=== PATIENT | female | born 1975 | race American Indian/Alaskan Native ===

== ENCOUNTER 2016-04-23 17:22 | Emergency (ER) | payer BC ==
--- NOTE | 2016-04-23 18:33 | Emergency Department Report ---
Chief Complaint: Recheck/Abnormal Lab/Rx Stated Complaint: SOB/IRON LOW Time Seen by Provider: 04/23/16 18:33 - HPI History of Present Illness: Patient here states that she was diagnosed with Count 1-2 months ago. She says she is not taking a chronic basis I). She is complaining of feeling fatigued and tired all the time. Complaining of shortness of breath and chest tightness on and off to the middle of her chest since Wednesday. She says she feels a little bit better today. Denies any nausea vomiting. Denies any fever or chills. Her pain level now is 0 out of 10. Last menstrual period was 04/02/2016. - ROS Review of Systems: All systems are negative unless stated in HPI above. - Exam Vital Signs: Vital Signs 04/23/16 17:25 Temperature 98.3 F Pulse Rate 68 Respiratory 16 Rate Blood Pressure 149/84 O2 Sat by Pulse 100 Oximetry Physical Exam: General: This is a 41-year-old female well-nourished well-developed in no acute distress. CV: S1, S2. Regular rhythm and rate. Lungs:CTAB. Normal work of breathing MSE screening note: Focused history and physical exam performed. Due to findings the following was ordered:see mdm ED Medical Decision Making - Medical Decision Making Medical decision making: Patient seen by provider in triage area. Appropriate protocol activated and patient to main ED to be seen by physician. ED Disposition for MSE Condition: Stable
[2016-04-23 19:37] LABS: Basophils % (Auto) 0.4 % (0.0-1.8); Eosinophils % (Auto) 0.9 % (0.0-4.3); Hemoglobin 11.9 gm/dl (10.1-14.3); White Blood Count 7.1 K/mm3 (4.5-11.0)
[2016-04-23 19:41] LABS: Mean Corpuscular HGB Conc 32 % (30-34); Mean Corpuscular Hemoglobin 27 pg (28-32); Mean Corpuscular Volume 84 fl (79-97); Platelet Count 350 K/mm3 (140-440); Red Blood Count 4.38 M/mm3 (3.65-5.03); Red Cell Distribution Width 16.9 % (13.2-15.2)
[2016-04-23 20:01] LABS: Anion Gap 19 mmol/L; BUN/Creatinine Ratio 13.75; Blood Urea Nitrogen 11 mg/dL (7-17); Calcium 9.2 mg/dL (8.4-10.2); Carbon Dioxide 23 mmol/L (22-30); Chloride 101.1 mmol/L (98-107); Glucose 93 mg/dL (65-100); Potassium 3.5 mmol/L (3.6-5.0); Sodium 140 mmol/L (137-145)
[2016-04-23 20:05] LABS: Total Iron Binding Capacity 484.4 mcg/dL (250-450)
--- NOTE | 2016-04-24 00:09 | Emergency Department Report ---
ED General Adult HPI - General Chief complaint: Recheck/Abnormal Lab/Rx Stated complaint: SOB/IRON LOW Time Seen by Provider: 04/23/16 18:46 Source: patient, RN notes reviewed Mode of arrival: Ambulatory Limitations: No Limitations - History of Present Illness Initial comments: This is a 41-year-old female, previously unknown to me. Her primary care doctor is Dr. Hans Branham. Thinks she has a past medical history of anemia, but is not certain. Patient presents to the ER with nonspecific malaise, chest fluttering, shortness of breath. Chest fluttering and shortness of breath have been present since Wednesday. The chest fluttering does not radiates to the back, arms or neck. It is not associated with vomiting, diaphoresis. There is no leg pain or leg swelling. Patient reports a recent trip to [place] right after [place]. Does not use tobacco, cocaine. There is no family history of heart disease that she is aware of, there is no family history of thromboembolic disease that she is aware of. The patient describes her shortness of breath as the intermittent sensation of needing to take a deep breath. However, she does not think that she has a decrease in exercise tolerance per se. She cannot describe exacerbating or relieving factors. -: Gradual, days(s) Location: chest Severity scale (0 -10): 6 Quality: other (fluttering) Consistency: intermittent Improves with: none Worsens with: none Associated Symptoms: chest pain, malaise, shortness of breath, weakness. denies : confusion, cough, fever/chills, headaches, loss of appetite - Related Data Home Medications Medication Instructions Recorded Confirmed Last Taken No Known Home Medications [No 04/24/16 04/24/16 Unknown Reported Home Medications] Allergies Allergy/AdvReac Type Severity Reaction Status Date / Time No Known Allergies Allergy Unverified 04/23/16 17:31 ED Review of Systems ROS: Stated complaint: SOB/IRON LOW Other details as noted in HPI Constitutional: malaise. denies: fever Eyes: denies: vision change ENT: denies: epistaxis Respiratory: see HPI, cough Cardiovascular: chest pain Gastrointestinal: denies: abdominal pain Genitourinary: denies: dysuria Musculoskeletal: as per HPI Skin: denies: lesions Neurological: denies: headache Psychiatric: anxiety ED Past Medical Hx - Past Medical History Additional medical history: LOW IRON - Surgical History Additional Surgical History: TONSILLECTOMY. TUBAL LIGATION. - Social History Smoking Status: Never Smoker Substance Use Type: None - Medications Home Medications: Home Medications Medication Instructions Recorded Confirmed Last Taken Type No Known Home Medications [No 04/24/16 04/24/16 Unknown History Reported Home Medications] ED Physical Exam - General Limitations: No Limitations General appearance: alert, in no apparent distress - Head Head exam: Present: atraumatic, normocephalic - Eye Eye exam: Present: normal appearance, PERRL, EOMI. Absent: nystagmus - ENT ENT exam: Present: normal exam, normal orophraynx, mucous membranes moist, normal external ear exam - Neck Neck exam: Present: normal inspection, full ROM. Absent: tenderness, meningismus - Respiratory Respiratory exam: Present: normal lung sounds bilaterally. Absent: respiratory distress, wheezes, rales, rhonchi, stridor, chest wall tenderness - Cardiovascular Cardiovascular Exam: Present: regular rate, normal rhythm, normal heart sounds. Absent: bradycardia, tachycardia, irregular rhythm, systolic murmur, diastolic murmur, rubs, gallop - GI/Abdominal GI/Abdominal exam: Present: soft, normal bowel sounds. Absent: distended, tenderness, guarding, rebound, rigid, pulsatile mass - Extremities Exam Extremities exam: Present: normal inspection, full ROM, normal capillary refill. Absent: tenderness, pedal edema, joint swelling, calf tenderness - Back Exam Back exam: Present: normal inspection, full ROM. Absent: tenderness, CVA tenderness (R), muscle spasm, paraspinal tenderness, vertebral tenderness - Neurological Exam Neurological exam: Present: alert, oriented X3, normal gait, other (Extraocular movements intact. Tongue midline. No facial droop. Facial sensation intact to light touch in the V1, V2, V3 distribution bilaterally. 5 and 5 strength in 4 extremities.. Sensation is intact to light touch in 4 extremities.). Absent : motor sensory deficit - Psychiatric Psychiatric exam: Present: anxious - Skin Skin exam: Present: warm, dry, intact, normal color. Absent: rash ED Course Vital Signs 04/23/16 04/23/16 04/23/16 17:25 23:38 23:56 Temperature 98.3 F 98.0 F Pulse Rate 68 62 Respiratory 16 20 Rate Blood Pressure 149/84 106/64 Blood Pressure 119/82 [Left] O2 Sat by Pulse 100 100 Oximetry 04/24/16 04/24/16 04/24/16 00:00 00:03 01:00 Temperature Pulse Rate 66 63 65 Respiratory 11 L 14 11 L Rate Blood Pressure 120/73 120/73 127/76 Blood Pressure [Left] O2 Sat by Pulse 100 100 100 Oximetry 04/24/16 02:03 Temperature Pulse Rate Respiratory Rate Blood Pressure 117/69 Blood Pressure [Left] O2 Sat by Pulse Oximetry - Reevaluation(s) Reevaluation #1: 04/24/16 01:52 Differential diagnosis: Mitral valve prolapse, anxiety, acute coronary syndrome , pneumonia, pulmonary embolus assessment and plan: 41-year-old female with nonspecific complaints. She is afebrile with reassuring vital signs. Troponins are negative 2. Low risk by SUBHA score, low risk by haeart score. EKG morphologically unremarkable. Patient low risk by well's score, perc negative, with a negative d-dimer. Chest x-ray within normal limits. Not anemic by blood count. Saturating well on room air. Patient has been observed in the ER for a prolonged period of time. I see no objective indication to admit the patient to the hospital at this time. She is resting comfortable. She is instructed to follow up with outpatient primary care and cardiology. Return precautions are extensively reviewed. ED Medical Decision Making - Lab Data Result diagrams: 04/23/16 18:51 04/23/16 18:51 Vital Signs 04/23/16 04/23/16 04/23/16 17:25 23:38 23:56 Temperature 98.3 F 98.0 F Pulse Rate 68 62 Respiratory 16 20 Rate Blood Pressure 149/84 106/64 Blood Pressure 119/82 [Left] O2 Sat by Pulse 100 100 Oximetry 04/24/16 04/24/16 00:00 00:03 Temperature Pulse Rate 66 83 Respiratory 11 L 16 Rate Blood Pressure 120/73 Blood Pressure [Left] O2 Sat by Pulse 100 100 Oximetry Lab Results 04/23/16 04/23/16 04/23/16 Range/Units 18:51 18:51 18:51 WBC (4.5-11.0) K/mm3 RBC (3.65-5.03) M/mm3 Hgb (10.1-14.3) gm/dl Hct (30.3-42.9) % MCV (79-97) fl MCH (28-32) pg MCHC (30-34) % RDW (13.2-15.2) % Plt Count (140-440) K/mm3 Lymph % (Auto) (13.4-35.0) % Hutchinson % (Auto) (0.0-7.3) % Eos % (Auto) (0.0-4.3) % Baso % (Auto) (0.0-1.8) % Lymph # (1.2-5.4) K/mm3 Hutchinson # (0.0-0.8) K/mm3 Eos # (0.0-0.4) K/mm3 Baso # (0.0-0.1) K/mm3 Seg Neutrophils % (40.0-70.0) % Seg Neutrophils # (1.8-7.7) K/mm3 D-Dimer (0-234) ng/mlDDU Sodium 140 (137-145) mmol/L Potassium 3.5 L (3.6-5.0) mmol/L Chloride 101.1 (98-107) mmol/L Carbon Dioxide 23 (22-30) mmol/L Anion Gap 19 mmol/L BUN 11 (7-17) mg/dL Creatinine 0.8 (0.7-1.2) mg/dL Estimated GFR > 60 ml/min BUN/Creatinine Ratio 13.75 % Glucose 93 (65-100) mg/dL Calcium 9.2 (8.4-10.2) mg/dL Iron 279 H (37-170) ug/dL TIBC 484.40 H (250-450) mcg/dL % Saturation 57.60 % Transferrin 346 (192-382) mg/dl Total Creatine Kinase 134 (30-135) units/L CK-MB (CK-2) 1.0 (0.0-4.0) ng/mL CK-MB (CK-2) Rel Index 0.7 (0-4) Troponin T (0.00-0.029) ng/mL HCG, Qual Negative (Negative) 04/23/16 04/24/16 04/24/16 Range/Units 18:51 00:21 00:21 WBC 7.1 (4.5-11.0) K/mm3 RBC 4.38 (3.65-5.03) M/mm3 Hgb 11.9 (10.1-14.3) gm/dl Hct 37.0 (30.3-42.9) % MCV 84 (79-97) fl MCH 27 L (28-32) pg MCHC 32 (30-34) % RDW 16.9 H (13.2-15.2) % Plt Count 350 (140-440) K/mm3 Lymph % (Auto) 28.8 (13.4-35.0) % Hutchinson % (Auto) 7.8 H (0.0-7.3) % Eos % (Auto) 0.9 (0.0-4.3) % Baso % (Auto) 0.4 (0.0-1.8) % Lymph # 2.1 (1.2-5.4) K/mm3 Hutchinson # 0.6 (0.0-0.8) K/mm3 Eos # 0.1 (0.0-0.4) K/mm3 Baso # 0.0 (0.0-0.1) K/mm3 Seg Neutrophils % 62.1 (40.0-70.0) % Seg Neutrophils # 4.4 (1.8-7.7) K/mm3 D-Dimer < 135 (0-234) ng/mlDDU Sodium (137-145) mmol/L Potassium (3.6-5.0) mmol/L Chloride (98-107) mmol/L Carbon Dioxide (22-30) mmol/L Anion Gap mmol/L BUN (7-17) mg/dL Creatinine (0.7-1.2) mg/dL Estimated GFR ml/min BUN/Creatinine Ratio % Glucose (65-100) mg/dL Calcium (8.4-10.2) mg/dL Iron (37-170) ug/dL TIBC (250-450) mcg/dL % Saturation % Transferrin (192-382) mg/dl Total Creatine Kinase (30-135) units/L CK-MB (CK-2) (0.0-4.0) ng/mL CK-MB (CK-2) Rel Index (0-4) Troponin T < 0.010 (0.00-0.029) ng/mL HCG, Qual (Negative) - EKG Data When compared to previous EKG there are: previous EKG unavailable 04/24/16 01:53 Normal sinus, 65 bpm, normal intervals, normal axis, unremarkable EKG, not morphologically consistent with STEMI. - Radiology Data Radiology results: image reviewed interpreted by me: Chest x-ray within normal limits/negative. Critical care attestation.: If time is entered above; I have spent that time in minutes in the direct care of this critically ill patient, excluding procedure time. ED Disposition Clinical Impression: Chest discomfort Disposition: DISCHARGED TO HOME OR SELFCARE Is pt being admited?: No Does the pt Need Aspirin: No Condition: Stable Instructions: Chest Pain (ED) Additional Instructions: Laboratory studies, EKG, chest x-ray were unremarkable. Follow-up with her primary care doctor or iron worker within the next week. I have given you numerous names, phone numbers, addresses for local internal controls specialist. Return to the ER right away with new pain, worsened pain, migration of pain, fevers or chills, nausea or vomiting, inability to tolerate liquid feeds. Referrals: BENNY BRANHAM MD [Primary Care Provider] - 3-5 Days LAILA BOWDEN MD [Staff Physician] - 3-5 Days LARISSA ARCINIEGA MD [Staff Physician] - 3-5 Days
[2016-04-24 02:18] VITALS: BP 117/69
--- NOTE | 2016-04-24 07:20 | XRay Report ---
CHEST 2 VIEWS INDICATION: Shortness of breath for 1 week. Tightness. Nonsmoker. COMPARISON: None similar. FINDINGS: PA and lateral chest radiographs demonstrate normal cardiomediastinal silhouette. Clear lungs. Unremarkable bones. CONCLUSION: No acute disease. Thank you for the opportunity to participate in this patient's care.
== END 2016-04-24 02:19 | disposition home or self-care (01) ==
LOC: ED 17:22
DX: R07.89 Other chest pain (principal); Z98.51 Tubal ligation status
CPT/HCPCS: 36415; 71020; 80048; 82550; 82553; 83550; 84484; 84703; 85025; 85379; 93005; 93010